=== PATIENT | male | born 2005 | race Caucasian/White ===

== ENCOUNTER 2024-09-16 01:11 | Emergency (ER) | payer BC ==
[~2024-09-16] VITALS: Ht 172.7 cm; Wt 70.3 kg
[2024-09-16] MEDS ORDERED: DEXT10TA7 (01:27)
[2024-09-16] MEDS ORDERED: [UNRECOGNIZED DRUG - CODE] (01:27)
[2024-09-16] MEDS ORDERED: CETI-90 (01:27)
[2024-09-16 01:50] LABS: BASOPHILS % (AUTO) 0.4 % (0.0-2.0); EOSINOPHILS # (AUTO) 0.1 K/uL (0.0-0.7); EOSINOPHILS % (AUTO) 1.3 % (0.0-7.0); HEMATOCRIT 45.8 % (36.7-47.1); HEMOGLOBIN 16.1 g/dL (12.5-16.3); LYMPHOCYTES # (AUTO) 2.2 K/uL (0.8-4.8); LYMPHOCYTES % (AUTO) 28.5 % (20.5-74.5); MEAN CORPUSCULAR HEMOGLOBIN 30.1 uug (23.8-33.4); MEAN CORPUSCULAR HGB CONC 35 g/dL (32.5-36.3); MEAN CORPUSCULAR VOLUME 85.7 fL (73.0-96.2); MONOCYTES # (AUTO) 0.9 K/uL (0.1-1.30); MONOCYTES % (AUTO) 11.7 % (0-11); NEUTROPHILS # (AUTO) 4.5 K/uL (1.8-8.9); NEUTROPHILS % (AUTO) 58.1 % (31.5-64.5); PLATELET COUNT (AUTO) 261 K/uL (152-348); RED BLOOD CELL COUNT(AUTO) 5.34 MIL/uL (4.06-5.63); RED CELL DISTRIBUTION WIDTH 13.3 % (12.1-16.2); WHITE BLOOD COUNT (AUTO) 7.8 K/uL (3.6-10.2)
[2024-09-16 01:52] LABS: DIFFERENTIAL COMMENT 1
[2024-09-16] MEDS: IV NORMAL SALINE 500 ML BAG IV ONE (01:52)
[2024-09-16 01:58] LABS: CALCIUM 9.3 mg/dL (8.5-10.1); CREATININE 1.2 mg/dL (0.6-1.3); POTASSIUM 3.5 mmol/L (3.5-5.1)
[2024-09-16 02:11] LABS: BILIRUBIN,TOTAL 0.3 mg/dL (0.2-1.0); MAGNESIUM 2.1 mg/dL (1.8-2.4); TOTAL PROTEIN, SERUM 7.3 g/dL (6.4-8.2)
[2024-09-16 02:12] LABS: THYROID STIMULATING HORMONE 1.166 mIU/mL (0.358-3.740)
[2024-09-16 04:12] VITALS: BP 125/72; O2SAT 98
== END 2024-09-16 04:12 | disposition home or self-care (01) ==
LOC: ER 01:21
DX: R07.9 Chest pain, unspecified (principal); R55 Syncope and collapse; F90.9 Attention-deficit hyperactivity disorder, unspecified type; J45.909 Unspecified asthma, uncomplicated; Z87.39 Personal history of other diseases of the musculoskeletal system and connective tissue
CPT/HCPCS: 99285; 96360; 71045; 80053; 83735; 84443; 85025; 84484; 36415; 93005; 83605; J7040; A4606; A4663